=== PATIENT | male | born 1975 | race American Indian/Alaskan Native ===

== ENCOUNTER 2017-11-23 14:44 | Outpatient (CLI) | payer OTHER ==
[~2017-11-23 14:44] MED LIST: CEFADROXIL500 MG PO; KETO10TA2 PO; SYNTHROID50 MCG; ZITHROMAX500 MG PO
== END 2017-11-23 15:05 | disposition home or self-care (01) ==
LOC: RAD 14:44
DX: J45.998 Other asthma (principal); J30.89 Other allergic rhinitis

== ENCOUNTER 2019-05-28 06:19 | Inpatient (IN) | payer OTHER ==
[~2019-05-28] VITALS: Ht 190.5 cm; Wt 86.2 kg
--- NOTE | 2019-05-28 06:34 | NUR ---
SE RECIBE PTE ALERTA Y ORIENTADO POR MERLIN. PTE REFIERE PRESENTAR DOLOR DE JAMES, DOLOR EN EL CUERPO, CONGESTION NASAL, TOS Y FIEBRE DESDE EL MIERCOLES PASADO.
--- NOTE | 2019-05-28 07:44 | NUR ---
SE ORIENTA PTE SOBRE EL TRATAMIENTO ORDENADO POR EL DR BUSTOS PTE ALERTA Y CONCIENTE POR 3 SE UBICAPTE EN CUARTO DE ISOLATION TRACY EDWARDS REALIZA MUESTRAS DE LABORATORIO Y ADMINISTRAN MEDICAMENTO SADE ORDENADO PTE EN ESPERA DE ESTUDIO.
--- NOTE | 2019-05-28 09:55 | NUR ---
DRA. HERNÁNDEZ ORIENTA AL PTE SOBRE TERRY CONDICION Y REALIZA PRUEBAS. VERBALIZA ENTENDER. SE LE ORIENTA SOBRE ANTIBIOTICOS ORDENADOS POR LA DRA. HERNÁNDEZ.. VERBALIZA ENTENDER. SE LE ADMINISTRA MEDICAMENTOS SADE ORDEN MEDICA. DR. ALLRED, INFECTOLOGO Y DR. PHYLLIS TRIPP, INTERNISTA, ORIENTA AL PTE SOBRE PROCEDIMIENTO DE PUNCION LUMBAR.
[2019-05-29] MEDS ORDERED: LEVO-T100 MCG PO (08:07)
== END 2019-06-02 09:55 | disposition home or self-care (01) | DRG 99 ==
LOC: ER 06:19 → MEDJ 11:22 → SEC-K 11:22 → MEDJ 05-29 01:43
PROVIDERS: ADMIT Internal Medicine
PROC: BW28ZZZ Computerized Tomography (CT Scan) of Head (ICD-10-PCS; principal; 2019-05-28)
PROC: 8E0ZXY6 Isolation (ICD-10-PCS; 2019-05-28)
DX: G03.0 Nonpyogenic meningitis (principal); B96.0 Mycoplasma pneumoniae [M. pneumoniae] as the cause of diseases classified elsewhere; E03.8 Other specified hypothyroidism; R50.9 Fever, unspecified; G44.89 Other headache syndrome